=== PATIENT | female | born 1995 | race Caucasian/White ===

== ENCOUNTER → 2016-09-18 | Outpatient (CLI) | payer BC, OTHER ==
--- NOTE | 2016-09-18 14:52 | US ---
BILATERAL BREAST ULTRASOUND Clinical History: 21 year old woman referred for bilateral breast tenderness and right palpable mass . Comparison: None Findings: Real time ultrasound of both breasts was performed as per clinical request. Within the rig ht breast at approximately 11 o'clock is a 1 cm hypoechoic mass with well-circumscribed borders and no internal flow. No sonographic abnormalities in the left breast. 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 ACR CATEGORY 3 - PROBABLY BENIGN FINDING; SHORT INTERVAL FOLLOW-UPSUGGESTED. Recommend followup ultrasound in 3-6 months. * 0 (ZERO) - ASSESSMENT INCOMPLETE; ADDITIONAL IMAGING IS NEEDED. * 1/ (ONE) - NEGATIVE. * 2/II (TWO) - BENIGN FINDINGS. * 3/III (THREE) - PROBABLY BENIGN FINDING; SHORT INTERVAL FOLLOW-UP SUGGESTED. * 4/IV (FOUR) - SUSPICIOUS ABNORMALITY; BIOPSY SHOULD BE CONSIDERED. * 5/V - HIGHLY SUSPICIOUS OF MALIGNANCY; BIOPSY SHOULD BE PERFORMED. A NEGATIVE X-RAY REPORT SHOULD NOT DELAY BIOPSY IF A DOMINANT OR CLINICALLY SUSPICIOUS MASS IS PRESENT; 4 TO 8 PERCENT OF CANCERS ARE NOT IDENTIFIED BY X-RAY. A NEG ATIVE REPORT MAY REINFORCE THE CLINICAL IMPRESSION. ADENOSIS AND DENSE BREASTS MAY OBSCURE AN UNDER LYING NEOPLASM. Reported By:
== END ==
LOC: RAD 12:48
PROVIDERS: ATTEND Specialist
DX: N64.4 Mastodynia (principal); N63 Unspecified lump in breast
CPT/HCPCS: 76642

== ENCOUNTER 2017-08-16 20:52 | Emergency (ER) | payer BC, OTHER ==
[2017-08-16 20:59] VITALS: BP 119/72; BMI 32.3
[2017-08-16 21:54] LABS: BILIRUBIN,URINE NEGATIVE (NEGATIVE); BLOOD/HEMOGLOBIN,URINE NEGATIVE (NEGATIVE); GLUCOSE, URINE NEGATIVE (NEGATIVE); KETONES,URINE NEGATIVE (NEGATIVE); LEUKOCYTE ESTERASE ,URINE 1+ (NEGATIVE); NITRITES,URINE NEGATIVE (NEGATIVE); PROTEIN,URINE NEGATIVE (NEGATIVE); UROBILINOGEN,URINE NORMAL (NORMAL)
[2017-08-16 22:18] LABS: AMNISURE ROM TEST NO MEMBRANES RUPTURE (NO RUPTURE); APPEARANCE,URINE CLEAR (CLEAR); COLOR,URINE YELLOW (YELLOW); RBC,URINE NONE SEEN /HPF (NONE SEEN)
[2017-08-16 22:19] LABS: BACTERIA,URINE TRACE /HPF (NEGATIVE); SQUAMOUS EPITHELIAL CELL,UR NUMEROUS /HPF (NEGATIVE)
[2017-08-16] MEDS ORDERED: LR 1000 ML IV 1,000 ML IV ONE ×2 (22:39→23:00)
[2017-08-16 23:16] LABS: BILIRUBIN,URINE NEGATIVE (NEGATIVE); BLOOD/HEMOGLOBIN,URINE NEGATIVE (NEGATIVE); GLUCOSE, URINE NEGATIVE (NEGATIVE); KETONES,URINE 1+ (NEGATIVE); LEUKOCYTE ESTERASE ,URINE 1+ (NEGATIVE); NITRITES,URINE NEGATIVE (NEGATIVE); PROTEIN,URINE NEGATIVE (NEGATIVE); UROBILINOGEN,URINE NORMAL (NORMAL)
[2017-08-16 23:23] LABS: APPEARANCE,URINE CLEAR (CLEAR); COLOR,URINE YELLOW (YELLOW); RBC,URINE NONE SEEN /HPF (NONE SEEN)
[2017-08-16 23:24] LABS: AMORPHOUS SEDIMENT,UR 1+ /HPF (NEGATIVE); BACTERIA,URINE TRACE /HPF (NEGATIVE); RENAL EPITHELIAL CELLS,URINE FEW /HPF (NEGATIVE); SQUAMOUS EPITHELIAL CELL,UR RARE /HPF (NEGATIVE)
[2017-08-16] MEDS ORDERED: MACROBID CAP 100 MG EXT REL PO ONE ×2 (23:27→23:36)
== END 2017-08-17 00:01 | disposition home or self-care (01) ==
LOC: ER 21:02
DX: O60.00 Preterm labor without delivery, unspecified trimester (principal); Z3A.00 Weeks of gestation of pregnancy not specified
CPT/HCPCS: 81001; 84112; 96365; 96367; 99284; A4222; J7120

== ENCOUNTER 2017-10-30 06:30 | Inpatient (IN) ==
[2017-10-30] MEDS ORDERED: REGLAN INJ 10 MG VIAL IVP PRN ×3 (06:41→09:06)
[2017-10-30] MEDS ORDERED: D5LR 1L W PITOCIN 10 UNITS/L 10 UNITS/1,000 ML BAG IV PRN (06:41)
[2017-10-30] MEDS ORDERED: D5 1/2 NS 1000 ML 1,000 ML IV SCH (06:41)
[2017-10-30] MEDS ORDERED: NUBAIN INJ 200 MG VIAL MULTIDOSE IVP PRN (06:41)
[2017-10-30] MEDS ORDERED: MORPHINE SULFATE INJ 2 MG INJ IVP PRN (06:41)
[2017-10-30] MEDS ORDERED: PITOCIN IVP ONE (06:41)
[2017-10-30] MEDS ORDERED: PHENERGAN INJ 25 MG IV PRN (06:41)
[2017-10-30] MEDS ORDERED: ANCEF 1 GRAM IV PREMIX* 1 G/50 ML BAG IV ONE (06:42)
[2017-10-30] MEDS: LR 1000 ML IV 1,000 ML IV ONE ×2 (06:42)
[2017-10-30] MEDS ORDERED: LR 1000 ML IV 1,000 ML IV ONE ×2 (06:42→07:33)
[2017-10-30] MEDS ORDERED: ANCEF VIAL 1 GRAM 1 G in NS 100 ML IV + SPIKE MINIBAG* 100 ML IV ONE (06:43)
[2017-10-30] MEDS ORDERED: DURAMORPH ONE (06:57)
[2017-10-30] MEDS ORDERED: MARCAINE SPINAL ONE (06:57)
[2017-10-30] MEDS ORDERED: D5 1/2 NS 1L W PITOCIN 20 UNITS/L 20 UNITS/1,000 ML BAG IV ONE (08:38)
[2017-10-30] MEDS ORDERED: BENADRYL INJ 50 MG VIAL IVP PRN ×2 (08:41→09:06)
[2017-10-30] MEDS ORDERED: PHENERGAN INJ 25 MG IVP PRN (08:41)
[2017-10-30] MEDS ORDERED: ZOFRAN INJ 4 MG VIAL IVP PRN ×2 (08:41→09:06)
[2017-10-30] MEDS ORDERED: DILAUDID INJ IVP PRN (08:41)
[2017-10-30] MEDS ORDERED: MYLICON TAB 80 MG CHEW PO PRN (09:06)
[2017-10-30] MEDS ORDERED: D5 1/2 NS 1000 ML 1,000 ML with PITOCIN 20 UNITS IV SCH ×2 (09:06)
[2017-10-30] MEDS ORDERED: NARCAN INJ IVP PRN (09:06)
[2017-10-30] MEDS ORDERED: ADACEL or BOOSTRIX TDaP VACCINE IM ONE (09:06)
[2017-10-30] MEDS: KENALOG CREAM EXT SCH ×2 (09:56→22:56)
[2017-10-30] MEDS: ZANTAC PO SCH ×2 (10:03→21:06)
[2017-10-30] MEDS: PRENATAL PLUS PO SCH (10:03)
[2017-10-30] MEDS: PERCOCET TAB 5/325 MG PO PRN (11:17)
[2017-10-30] MEDS ORDERED: VERSED ONE (12:49)
[2017-10-30] MEDS ORDERED: PITOCIN ONE (12:49)
[2017-10-30] MEDS ORDERED: DIPRIVAN VIAL ONE (12:49)
[2017-10-30] MEDS ORDERED: EPHEDRINE SULFATE INJ ONE (12:49)
[2017-10-30] MEDS: TORADOL 30 MG VIAL IVP PRN ×2 (14:53→22:29)
[2017-10-31 05:18] LABS: HEMATOCRIT 29.8 % (36.0-47.0); HEMOGLOBIN 10.1 g/dL (12.0-16.0)
[2017-10-31] MEDS: PRENATAL PLUS PO SCH (08:00)
[2017-10-31] MEDS: COLACE CAP 100 MG PO SCH ×2 (08:00→20:50)
[2017-10-31] MEDS: ZANTAC PO SCH ×2 (08:00→20:50)
[2017-10-31] MEDS: KENALOG CREAM EXT SCH ×2 (08:00→20:50)
[2017-10-31] MEDS: PERCOCET TAB 5/325 MG PO PRN ×2 (08:01→15:48)
[2017-10-31] MEDS: MOTRIN TAB 800 MG PO PRN ×2 (11:44→17:22)
[2017-10-31] MEDS: BACTROBAN TOPICAL OINT TOP SCH ×2 (13:59→20:50)
[2017-10-31] MEDS: FERROUS GLUCONATE PO SCH (16:49)
[2017-11-01] MEDS: MOTRIN TAB 800 MG PO PRN ×2 (01:41→09:55)
[2017-11-01] MEDS: BACTROBAN TOPICAL OINT TOP SCH (05:26)
[2017-11-01] MEDS: FERROUS GLUCONATE PO SCH (06:13)
[2017-11-01] MEDS: PERCOCET TAB 5/325 MG PO PRN (07:10)
[2017-11-01] MEDS: ZANTAC PO SCH (08:00)
[2017-11-01] MEDS: COLACE CAP 100 MG PO SCH (08:00)
[2017-11-01] MEDS: KENALOG CREAM EXT SCH (08:00)
[2017-11-01] MEDS: PRENATAL PLUS PO SCH (08:00)
[2017-11-01 08:02] VITALS: BP 114/75
== END 2017-11-01 11:00 | disposition home or self-care (01) | DRG 766 ==
LOC: LD 06:30 → MED/SURG 09:06
PROVIDERS: ADMIT Specialist; ATTEND Specialist
DX: Z3A.39 39 weeks gestation of pregnancy; O34.33 Maternal care for cervical incompetence, third trimester; Z37.0 Single live birth
CPT/HCPCS: 36415; 85014; 85018; 90715; A4216; A4222; S0197; J0690; J1200; J1885; J2250; J2405; J2590; J2704; J3490; J7120